=== PATIENT | male | born 1960 | race Caucasian/White ===

== ENCOUNTER → 2016-06-13 | Outpatient (CLI) | payer BC | END | disposition home or self-care (01) | LOC: PCVCIMAG 09:03 | PROVIDERS: ATTEND Internal Medicine Cardiovascular Disease | DX: G45.9 Transient cerebral ischemic attack, unspecified (principal); R00.2 Palpitations; I48.0 Paroxysmal atrial fibrillation; Z95.2 Presence of prosthetic heart valve | CPT/HCPCS: 78452; 93005; 93017; 93306; A9500; G0463 ==

== ENCOUNTER → 2016-07-03 | Outpatient (CLI) | payer BC | END | disposition home or self-care (01) | LOC: PCVCIMAG 15:04 | PROVIDERS: ATTEND Nuclear Medicine Nuclear Cardiology | DX: I65.22 Occlusion and stenosis of left carotid artery (principal); I25.10 Atherosclerotic heart disease of native coronary artery without angina pectoris; I48.0 Paroxysmal atrial fibrillation; E78.00 Pure hypercholesterolemia, unspecified | CPT/HCPCS: 93880; G0463 ==

== ENCOUNTER → 2016-07-05 | Outpatient (CLI) | payer BC ==
[~2016-07-05] MED LIST: CLOPIDOGREL BISULFATE 75 MG TABLET ONE; DIAZEPAM 10 MG TABLET. ONE; EPTIFIBATIDE BOLUS 2,000 MCG/ML 10ML VIAL. IV ONE; HEPARIN SODIUM 5,000 UNIT/ML VIAL for PCVC. ONE; IODIXANOL 270 MG/ML 100 ML VIAL. ONE; IOHEXOL 300 MG/ML 100ML VIAL. ONE; IV NORMAL SALINE 1000ML BAG 1,000 ML ONE; IV NORMAL SALINE 500ML BAG 0 ML ONE; IV NORMAL SALINE 50ML 50 ML ONE; LIDOCAINE 1% Multi-Dose 20 ML VIAL. ONE; MIDAZOLAM HCL/PF 2 MG/2 ML VIAL. ONE; ceFAZolin SODIUM 1 GM VIAL ONE; fentaNYL PF VIAL 100 MCG/2 ML VIAL ONE
== END ==
LOC: PCVCINTER 08:40
PROVIDERS: ATTEND Nuclear Medicine Nuclear Cardiology
DX: I65.23 Occlusion and stenosis of bilateral carotid arteries (principal); G45.8 Other transient cerebral ischemic attacks and related syndromes; I70.1 Atherosclerosis of renal artery; I73.9 Peripheral vascular disease, unspecified; I15.0 Renovascular hypertension
CPT/HCPCS: 36215; 36223; 36226; 36252; 37220; 37236; 75710; 75716; 76937; C1725; C1751; C1760; C1769; C1876; C1894; C2623; J0690; J1644; J2250; J3010; J7030; Q9967; 99152; 99153; J1327; J7040

== ENCOUNTER → 2016-10-31 | Outpatient (CLI) | payer BC ==
--- NOTE | 2016-10-31 10:43 | PCVCIMAG ---
EXAM: BILATERAL CAROTID DUPLEX INDICATION: Carotid Occlusive Disease. FINDINGS: Doppler Measurements (centimeters per second): RIGHT: Peak CCA-70, Peak ECA-130, Diastolic ICA-36, Peak ICA-93, ICA/CCA Ratio-1.3. LEFT: Peak CCA-82, Peak ECA-143, Diastolic ICA-71, Peak ICA-190, ICA/CCA Ratio-2.3. RIGHT CAROTID: The carotid bulb has mild plaque. The proximal internal carotid artery shows <40% stenosis. The common carotid artery shows no significant stenosis. The external carotid artery shows no significant stenosis. LEFT CAROTID: The carotid bulb has moderate plaque. The proximal internal carotid artery shows 60-70% stenosis. The common carotid artery shows no significant stenosis. The external carotid artery shows 40% stenosis. Antegrade flow in both vertebral arteries. IMPRESSION: <40% stenosis of the right internal carotid artery with mild plaque. 60-70% stenosis of the left internal carotid artery with moderate plaque. LOC:[place] [id number]
--- NOTE | 2016-10-31 10:51 | PCVCIMAG ---
EXAM: LEFT UPPER EXTREMITY ARTERIAL DUPLEX INDICATION: Subclavian artery stenosis. Prior stent. FINDINGS: Left arm: Normal triphasic waveforms in the subclavian, axillary, brachial, radial, and ulnar arteries. Previous stent proximal subclavian artery showing good patency. IMPRESSION: No flow-limiting stenosis seen in the left upper extremity. Previous left subclavian artery stent maintaining good patency. LOC:[id number]
--- NOTE | 2016-10-31 10:55 | PCVCIMAG ---
EXAM: AORTOILIAC DUPLEX INDICATION: Peripheral arterial disease FINDINGS: AORTA: Suprarenal aorta measures maximum diameter of 2.5 cm. There is not a fusiform infrarenal aortic aneurysm. The infrarenal aorta measures maximum diameter of 2.0 cm. No aortic stenosis. RIGHT COMMON ILIAC ARTERY: Maximum diameter is 1.1 cm. No significant stenosis. RIGHT EXTERNAL ILIAC ARTERY: No significant stenosis. LEFT COMMON ILIAC ARTERY: Maximum diameter is 1.0 cm. No significant stenosis. LEFT EXTERNAL ILIAC ARTERY: Increased systolic velocity up to 407 cm/s consistent with 80-90% stenosis distal vessel. IMPRESSION: No abdominal aortic aneurysm. No right common or external iliac artery stenoses. 80-90% restenosis distal left external iliac artery. Note is made of high-grade stenosis at the origins of both internal iliac arteries. LOC:[id number]
== END | disposition home or self-care (01) ==
LOC: PCVCIMAG 08:10
PROVIDERS: ATTEND Nuclear Medicine Nuclear Cardiology
DX: Z01.812 Encounter for preprocedural laboratory examination (principal); I70.203 Unspecified atherosclerosis of native arteries of extremities, bilateral legs; I77.89 Other specified disorders of arteries and arterioles; I65.23 Occlusion and stenosis of bilateral carotid arteries; I70.8 Atherosclerosis of other arteries; I77.1 Stricture of artery; I25.10 Atherosclerotic heart disease of native coronary artery without angina pectoris; E78.00 Pure hypercholesterolemia, unspecified; M19.90 Unspecified osteoarthritis, unspecified site; K21.9 Gastro-esophageal reflux disease without esophagitis; Z95.828 Presence of other vascular implants and grafts; Z72.0 Tobacco use; Z95.4 Presence of other heart-valve replacement; Z95.1 Presence of aortocoronary bypass graft; Z95.5 Presence of coronary angioplasty implant and graft; Z79.82 Long term (current) use of aspirin
CPT/HCPCS: 36415; 93880; 93931; 93978; G0463

== ENCOUNTER → 2016-11-06 | Outpatient (CLI) | payer BC ==
[~2016-11-06] MED LIST changes: -IOHEXOL 300 MG/ML 100ML VIAL. ONE; -IV NORMAL SALINE 500ML BAG 0 ML ONE; +IV NORMAL SALINE 500ML BAG 500 ML ONE; -IV NORMAL SALINE 50ML 50 ML ONE; -ceFAZolin SODIUM 1 GM VIAL ONE
--- NOTE | 2016-11-06 13:05 | PCVCINTER ---
EXAM: 1. AORTOGRAM AND BILATERAL LOWER EXTREMITY RUNOFF ANGIOGRAM 2. BILATERAL RENAL ANGIOGRAPHY 3. LEFT SUBCLAVIAN ANGIOGRAPHY. 4. LEFT EXTERNAL ILIAC ARTERY STENT PLACEMENT. INDICATION: Peripheral arterial disease. Left buttock/leg claudication. Previous left subclavian artery stent. Hypertension. Renal atherosclerosis. PROCEDURE: Procedure and risks of angiography intervention is appropriate including limb loss stroke and were discussed with the patient's family and consent obtained. The patient's right groin was prepped abnormal sterile fashion. IV conscious sedation was used to procedure with appropriate monitoring from 10:45 AM through 12:00 PM.. Ultrasound was used to interrogate the right groin and showed the right common femoral artery to be patent. A permanent spot film was obtained. Under ultrasound guidance access into the right common femoral artery was obtained and a 5 Marshallese sheath was placed. Through this a 5 Marshallese flush catheter was placed into the abdominal aorta at the level of the renal arteries and AP aortogram was performed. Catheter was positioned at the aortic bifurcation and both oblique views of the pelvis were obtained. The diagnostic catheter was placed in the proximal left subclavian artery left subclavian angiogram obtained. Catheter was positioned into the right external iliac artery and right leg runoff angiography was performed. Catheter was exchanged for a visceral catheter was placed into the right renal arteries and right renal angiograms obtained. Catheter was placed into the the left renal arteries and left renal angiograms were obtained. Catheter was advanced to the level of the left external iliac artery and left leg runoff angiography was obtained. Patient was given 4000 units of heparin. A 6 Marshallese crossover sheath was placed via the right groin to the level of the left common iliac artery. Stent placement across the areas of high-grade stenosis in the left distal external iliac artery was carried out with a 8 x 30 Smart control stent with subsequent dilatation to 6.0 mm. Follow-up angiogram was performed. Catheters and wires removed. Sheath was removed and hemostasis obtained using the FISH device. No immediate complications. FINDINGS: Aortogram: There is one right and one left renal artery. Mild/moderate plaque infrarenal abdominal aorta without significant stenosis. Pelvis: Scattered plaque in the right and left common iliac arteries without significant stenosis. The right external iliac artery is patent. 90% stenosis distal most left external iliac artery. High-grade stenosis at the origins of the internal iliac arteries bilaterally. The common femoral and profunda femoral arteries are patent bilaterally. Right renal artery: Mild plaque proximal vessel does not cause significant stenosis. No branch vessel stenosis. Left renal artery: Mild plaque proximal vessel does not cause significant stenosis. No branch vessel stenosis. Right leg: The superficial femoral and popliteal arteries are patent. Three-vessel runoff into the foot. Note is made of a high origin of the anterior tibial artery at the level of the knee joint. Left leg: The superficial femoral and popliteal arteries are patent. Three-vessel runoff into the foot. Left subclavian angiogram: Previous stent proximal subclavian artery is widely patent. The mid and distal subclavian artery is patent. Left external iliac artery: Following procedure as above vessel shows good patency. IMPRESSION: 90% stenosis distal left external iliac artery was treated with stent placement with good patency restored. Previous left subclavian artery stent is widely patent. follow up LOC:[place] [id number]
== END | disposition home or self-care (01) ==
LOC: PCVCINTER 08:43
PROVIDERS: ATTEND Nuclear Medicine Nuclear Cardiology
DX: I70.213 Atherosclerosis of native arteries of extremities with intermittent claudication, bilateral legs (principal); I10 Essential (primary) hypertension; I70.1 Atherosclerosis of renal artery
CPT/HCPCS: 36215; 36252; 37221; 75710; 75716; 76937; 99152; 99153; C1725; C1751; C1760; C1769; C1876; C1894; J0690; J1644; J2250; J3010; J7030; J7040; Q9966; J1327

== ENCOUNTER → 2017-03-23 | Outpatient (CLI) | payer BC | END | disposition home or self-care (01) | LOC: PCVCIMAG 08:41 | DX: I73.9 Peripheral vascular disease, unspecified (principal); I25.10 Atherosclerotic heart disease of native coronary artery without angina pectoris; I65.23 Occlusion and stenosis of bilateral carotid arteries; Z95.820 Peripheral vascular angioplasty status with implants and grafts; Z72.0 Tobacco use | CPT/HCPCS: 93306; 93880; 93923; 93978 ==

== ENCOUNTER → 2017-09-17 | Outpatient (CLI) | payer BC | END | disposition home or self-care (01) | LOC: PCVCIMAG 15:24 | DX: I73.9 Peripheral vascular disease, unspecified (principal); I65.23 Occlusion and stenosis of bilateral carotid arteries; Z86.73 Personal history of transient ischemic attack (TIA), and cerebral infarction without residual deficits | CPT/HCPCS: 93880; 93931; 93978 ==